=== PATIENT | male | born 2000 | race Caucasian/White ===

== ENCOUNTER → 2020-12-13 08:56 | Outpatient (CLI) | payer OTHER, SELFPAY ==
--- NOTE | 2020-12-13 09:02 | RAD_ITS ---
STUDY: X-RAY - RIGHT WRIST REASON FOR EXAM: Right wrist pain, right wrist injury from a fall 1-1.5 weeks ago. TECHNIQUE: 3 view(s) of the wrist were obtained. COMPARISON: None. FINDINGS: Normal visualized distal radius and ulna. Normal radiocarpal articulation. Normal distal radioulnar articulation. Normal carpal bones. Normal carpal articulations. Normal carpometacarpal articulation of the thumb. Normal second through fifth carpometacarpal articulations. Normal visualized metacarpal bones. The soft tissue structures are unremarkable. RAD/Wrist min 3 Views IMPRESSION: Unremarkable x-ray examination of the right wrist. Electronically Signed: Milo Magallanes MD at 10:02 EDT Tel , Service support ,
== END ==
PROVIDERS: PCP Family Medicine; Referring Provider Family Medicine; Visit Provider Family Medicine
DX: M25.531 Pain in right wrist (principal)
CPT/HCPCS: 73110

== ENCOUNTER → 2021-12-20 | Outpatient (CLI) | payer OTHER, SELFPAY ==
[2021-12-24 20:10] LABS: Chlamydia By Nucleic Acid AMP Positive (Negative)
[2021-12-25 07:40] LABS: Gonococcus By Nucleic Acid AMP Negative (Negative)
== END | disposition home or self-care (01) ==
LOC: LABSPEC 15:01
PROVIDERS: PCP Family Medicine; Visit Provider Family Medicine
DX: Z11.3 Encounter for screening for infections with a predominantly sexual mode of transmission (principal)
CPT/HCPCS: 87491; 87591

== ENCOUNTER → 2021-12-26 | Outpatient (CLI) | payer OTHER, SELFPAY ==
[2021-12-27 08:54] LABS: HIV - WCH Non-Reactive (Nonreactive); Syphilis Antibodies Non-reactive
== END | disposition home or self-care (01) ==
LOC: MFPLAB 16:18
PROVIDERS: PCP Family Medicine; Referring Provider Family Medicine; Visit Provider Family Medicine
DX: Z20.9 Contact with and (suspected) exposure to unspecified communicable disease (principal)
CPT/HCPCS: 36415; 86703; 86780

== ENCOUNTER → 2022-03-26 | Outpatient (CLI) | payer OTHER, SELFPAY ==
[2022-03-26 18:25] LABS: Chlamydia Trachomatis by PCR Negative (Negative); Neisserai gonorrhoeae by PCR Negative (Negative); Probe Check PASS; Sample Adequacy Control PASS; Specimen Processing Control PASS
== END | disposition home or self-care (01) ==
LOC: MFPLAB 14:00
PROVIDERS: PCP Family Medicine; Referring Provider Family Medicine; Visit Provider Family Medicine
DX: Z20.2 Contact with and (suspected) exposure to infections with a predominantly sexual mode of transmission (principal); Z86.19 Personal history of other infectious and parasitic diseases
CPT/HCPCS: 87491; 87591

== ENCOUNTER → 2022-11-19 | Outpatient (CLI) | payer OTHER, SELFPAY ==
[2022-11-19 12:57] LABS: AST(SGOT) 14 U/L (15-37); Alanine Aminotransfer ALT/SGPT 26 U/L (16-61); Albumin, Serum 3.7 g/dL (3.2-5.0); Alkaline Phosphatase 84 U/L (45-117); Anion Gap 8 (5-15); BUN 19 mg/dL (7-18); BUN/Creat Ratio 15.4 RATIO (10-20); Calcium,Total 9.1 mg/dL (8.5-10.1); Chloride 104 mmol/L (98-107); Cholesterol 186 mg/dL (200); Creatinine, Serum 1.23 mg/dL (0.70-1.30); EST Glomerular Filtration Rate 77 mL/min (>60); Est Glom Filt Rate - Afr Amer 93 mL/min (>60); Globulin 3.8 g/dL (2.2-4.2); Glucose 81 mg/dL (74-106); High Density Lipoprotein 45 mg/dL; Potassium 3.7 mmol/L (3.5-5.1); Protein, Total 7.5 g/dL (6.4-8.2); Sodium Level 141 mmol/L (136-145); Triglycerides 170 mg/dL; Very Low Density Lipoprotein 34 mg/dL (5-40)
[2022-11-22 20:07] LABS: Testosterone, % Free 2.71 % (1.50-4.20); Testosterone, Free 16.99 ng/dL (5.00-21.00); Testosterone, Total 627 ng/dL (264-916)
== END | disposition home or self-care (01) ==
LOC: BFHLAB 10:13
PROVIDERS: PCP Family Medicine; Referring Provider Family Medicine; Visit Provider Family Medicine
DX: Z00.00 Encounter for general adult medical examination without abnormal findings (principal); R53.83 Other fatigue
CPT/HCPCS: 36415; 80053; 80061; 84402; 84403

== ENCOUNTER → 2024-10-12 | Outpatient (CLI) | payer BC, SELFPAY ==
--- NOTE | 2024-10-12 17:01 | RAD_ITS ---
PROCEDURE: CHEST PA AND LATERAL 10/12/2024 REASON FOR EXAM: ASSESS FOR CHRONIC RIGHT UPPER LOBE OPACITY TECHNIQUE: Frontal and lateral views of the chest. COMPARISON: Two views of the chest FINDINGS: Hardware: None Heart: Cardiomediastinal silhouette is within normal limits. Normal pulmonary vascularity. Mediastinum: Unremarkable Lungs: No focal consolidation. Bones: No acute fractures. RAD/Chest PA and Lateral IMPRESSION: No acute cardiopulmonary abnormality. Reading Location: [facility]
--- NOTE | 2024-10-12 17:01 | RAD_ITS ---
EXAM: XR Bilateral Temporo-Mandibular Jt CLINICAL INDICATION: ASSESS FOR ABNORMALITIES TECHNIQUE: X-ray bilateral temporo-mandibular jt. COMPARISON: No relevant prior studies available. FINDINGS: Miles anterior subluxation of the left TMJ joint in comparison to the right when the mouth is opened. RAD/Temporo-Mandibular Jt Leonidas IMPRESSION: Miles anterior subluxation of the left TMJ joint in comparison to the right whe n the mouth is opened. Reading Location: [facility]
== END | disposition home or self-care (01) ==
LOC: MTRAD 16:47
PROVIDERS: PCP Family Medicine; Referring Provider Nurse Practitioner Family; Visit Provider Nurse Practitioner Family
DX: M26.601 Right temporomandibular joint disorder, unspecified (principal); Z87.01 Personal history of pneumonia (recurrent); R91.8 Other nonspecific abnormal finding of lung field
CPT/HCPCS: 70330; 71046